=== PATIENT | male | born 1995 | race Caucasian/White ===

== ENCOUNTER 2017-02-24 03:34 | Emergency (ER) | payer OTHER ==
[2017-02-24] MEDS ORDERED: FAMOTIDINE 20 MG/2 ML SDV IVP ONE (03:39)
[2017-02-24] MEDS ORDERED: DEXAMETHASONE 10 MG/ML VIAL IVP ONE (03:39)
[2017-02-24] MEDS ORDERED: NS 1,000 ML IV ONE (03:40)
--- NOTE | 2017-02-24 03:43 | EDPHY ---
H & P HPI/ROS: HPI CHIEF COMPLAINT: Uvula swelling. HISTORY OF PRESENT ILLNESS: Patient is a otherwise healthy 21-year-old male, presents emergency room with uvula swelling. He had called 911 as he states that he was up trying to have a glass of water noticed that his uvula was sudden onset swelling. Approximately 1 hour ago. He felt like he could swallow was choking so he called 911. EMS found him to be anxious however on neuro exam they noticed that his uvula was swollen brought into the emergency room. They did give him 50 of Benadryl in route. Upon arrival to the emergency room is resting comfortably clear lungs no rash. No stridor. Not drooling. He does have swollen boggy uvula. Consistent with uvulitis. He has not been sick recently. No fever. No neck pain. States the only thing he can think of he ate and not as tonight from a place he does not normally eat out. He has no other signs of allergic reaction or significant allergic reaction history. He does admit to approximately 7 shots of liquor tonight. He does smell of alcohol upon arrival to the emergency room. Past Medical History: No significant medical history Past Surgical History: No significant surgical history Social History: Denies daily use drugs alcohol tobacco products. [employer] student. Family History: Noncontributory ROS REVIEW OF SYSTEMS: A comprehensive 10 point review of systems is otherwise negative aside from elements mentioned in the history of present illness. Exam Constitutional appears well nontoxic, triage nursing summary reviewed, vital signs reviewed, awake/alert. Eyes normal conjunctivae and sclera, EOMI, PERRLA. HENT posterior pharynx uvula is boggy symmetrically swollen. Posterior pharynx otherwise unremarkable. No stridor. Not drooling. Able swallow appropriately. No signs of Enrico's. No stridor. No neck swelling. Soft palate normal. Tongue normal. normal inspection, atraumatic, moist mucus membranes, no epistaxis, neck supple/ no meningismus, no raccoon eyes. Respiratory clear to auscultation bilaterally, normal breath sounds, no respiratory distress, no wheezing. Cardiovascular rate normal, regular rhythm, no murmur, no edema, distal pulses normal. Gastrointestinal soft, non-tender, no rebound, no guarding, normal bowel sounds, no distension, no pulsatile mass. Genitourinary no CVA tenderness. Musculoskeletal no midline vertebral tenderness, full range of motion, no calf swelling, no tenderness of extremities, no meningismus, good pulses, neurovascularly intact. Skin pink, warm, & dry, no rash, skin atraumatic. Neurologic awake, alert and oriented x 3, AAOx3, moves all 4 extremities equally, motor intact, sensory intact, CN II-XII intact, normal cerebellar, normal vision, normal speech. Psychiatric normal mood/affect. Heme/Lymph/Immune no lymphadenopathy. Differential Diagnosis: Includes but is not limited to in a particular order allergic reaction, uvulitis, infection, strep Medical Decision Making: Plan for this patient treat as an acute allergic reaction with sudden onset uvulitis. Will get 10 mg IV Decadron, here to receive 50 mg IV Benadryl, will give IV Pepcid IV fluids and closely observed. Re-evaluation: 0600: I did re-evaluate this patient at this time. He is resting comfortably. He has not had any progression of allergic reaction or further swelling of his uvula. He has been resting comfortably. He has no trouble swallowing and breathing. He has been monitored here for multiple hours. He would like to go home. He has no neck pain or meningeal signs. I did re-evaluate his uvula and it is mildly swollen but not progressing. No airway compromise will place him on amoxicillin and Decadron. ENT follow-up. Additionally understands return emergency room if he has any worsening symptoms questions or concerns. This includes worsening breathing, swallowing. Fever Source: Patient, EMS Constitutional: Initial Vital Signs Temperature (C) 36.9 C 02/24/17 03:40 Heart Rate 105 H 02/24/17 03:40 Respiratory Rate 18 02/24/17 03:40 Blood Pressure 145/87 H 02/24/17 03:40 O2 Sat (%) 94 02/24/17 03:40 O2 Delivery Mode Room Air Allergies/Adverse Reactions: No Known Allergies Allergy (Unverified 02/24/17 04:03) Home Medications: Medication Instructions Recorded Amoxicillin Trihydrate [Amoxil] 500 mg PO TID 7 Days cap 02/24/17 Dexamethasone [Decadron 4 MG (*)] 4 mg PO DAILY #4 tab 02/24/17 Medical Decision Making - Data Points Laboratory Results: Laboratory Results 02/24/17 03:00 02/24/17 03:00 02/24/17 02/24/17 02/24/17 Unknown 03:00 03:00 WBC RBC Hgb Hct MCV MCH MCHC RDW Plt Count MPV Neut % (Auto) Lymph % (Auto) [place] % (Auto) Eos % (Auto) Baso % (Auto) Nucleat RBC Rel Count Absolute Neuts (auto) Absolute Lymphs (auto) Absolute Monos (auto) Absolute Eos (auto) Absolute Basos (auto) Absolute Nucleated RBC Immature Gran % Immature Gran # Sodium 146 mEq/L H mEq/L (134-144) Potassium 4.1 mEq/L mEq/L (3.5-5.2) Chloride 106 mEq/L mEq/L (97-110) Carbon Dioxide 22 mEq/l mEq/l (22-31) Anion Gap 18 mEq/L H mEq/L (8-16) BUN 13 mg/dL mg/dL (7-23) Creatinine 1.1 mg/dL mg/dL (0.7-1.3) Estimated GFR > 60 Glucose 102 mg/dL H mg/dL (70-100) Calcium 9.5 mg/dL mg/dL (8.5-10.4) Ethyl Alcohol 137 mg/dL H mg/dL (0-10) Group A Strep Screen NEGATIVE (NEGATIVE) Group A Strep DNA Pending 02/24/17 03:00 WBC 7.32 10^3/uL 10^3/uL (3.80-9.50) RBC 5.44 10^6/uL 10^6/uL (4.40-6.38) Hgb 16.3 g/dL g/dL (13.7-17.5) Hct 44.9 % % (40.0-51.0) MCV 82.5 fL fL (81.5-99.8) MCH 30.0 pg pg (27.9-34.1) MCHC 36.3 g/dL g/dL (32.4-36.7) RDW 12.0 % % (11.5-15.2) Plt Count 285 10^3/uL 10^3/uL (150-400) MPV 9.9 fL fL (8.7-11.7) Neut % (Auto) 67.4 % % (39.3-74.2) Lymph % (Auto) 20.5 % % (15.0-45.0) [place] % (Auto) 10.8 % % (4.5-13.0) Eos % (Auto) 0.7 % % (0.6-7.6) Baso % (Auto) 0.3 % % (0.3-1.7) Nucleat RBC Rel Count 0.0 % % (0.0-0.2) Absolute Neuts (auto) 4.94 10^3/uL 10^3/uL (1.70-6.50) Absolute Lymphs (auto) 1.50 10^3/uL 10^3/uL (1.00-3.00) Absolute Monos (auto) 0.79 10^3/uL 10^3/uL (0.30-0.80) Absolute Eos (auto) 0.05 10^3/uL 10^3/uL (0.03-0.40) Absolute Basos (auto) 0.02 10^3/uL 10^3/uL (0.02-0.10) Absolute Nucleated RBC 0.00 10^3/uL 10^3/uL (0-0.01) Immature Gran % 0.3 % % (0.0-1.1) Immature Gran # 0.02 10^3/uL 10^3/uL (0.00-0.10) Sodium Potassium Chloride Carbon Dioxide Anion Gap BUN Creatinine Estimated GFR Glucose Calcium Ethyl Alcohol Group A Strep Screen Group A Strep DNA Medications Given: Discontinued Medications Dexamethasone (Decadron Injection) 10 mg IVP EDNOW ONE Stop: 02/24/17 03:40 Last Admin: 02/24/17 03:56 Dose: 10 mg Famotidine (Pepcid) 20 mg IVP EDNOW ONE Stop: 02/24/17 03:40 Last Admin: 02/24/17 03:56 Dose: 20 mg Sodium Chloride (Ns) 1,000 mls @ 0 mls/hr IV ONCE ONE PRN Reason: Wide Open Stop: 02/24/17 03:41 Last Admin: 02/24/17 03:55 Dose: 1,000 mls Departure - Departure Disposition: Home, Routine, Self-Care Clinical Impression: Uvulitis Alcohol intoxication Qualifiers: Complication of substance-induced condition: uncomplicated Qualified Code(s): F10.920 - Alcohol use, unspecified with intoxication, uncomplicated Condition: Good Instructions: Uvulitis (ED), Alcohol Intoxication (ED) Additional Instructions: 1. Drink lots of fluids cold fluids stay well-hydrated. 2. Antibiotics as prescribed. 3. Decadron as prescribed. 4. Return to the emergency room if you develops worsening throat pain, trouble swallowing trouble breathing or any questions or concerns. Referrals: Patient,NotPresent [Unknown] - As per Instructions Ellyn Palencia MD [Medical Doctor] - As per Instructions Prescriptions: Amoxicillin Trihydrate [Amoxil] 500 mg PO TID 7 Days cap Dexamethasone [Decadron 4 MG (*)] 4 mg PO DAILY #4 tab
[2017-02-24 03:54] LABS: % IMMATURE GRANULYOCYTES 0.3 % (0.0-1.1); ABSOLUTE IMMATURE GRANULOCYTES 0.02 10^3/uL (0.00-0.10); ADD DIFF? NO; ADD MORPH? NO; ADD SCAN? NO; ATYPICAL LYMPHOCYTE FLAG 0 (0-99); FRAGMENT RBC FLAG 0 (0-99); HEMATOCRIT 44.9 % (40.0-51.0); HEMOGLOBIN 16.3 g/dL (13.7-17.5); LEFT SHIFT FLG 0 (0-99); LIPEMIA HEMOLYSIS FLAG 90 (0-99); MEAN CELL HEMOGLOBIN CONCENTR. 36.3 g/dL (32.4-36.7); MEAN CELL VOLUME 82.5 fL (81.5-99.8); MEAN PLATELET VOLUME 9.9 fL (8.7-11.7); PLATELET CLUMPS FLAG 0 (0-99); PLATELET COUNT 285 10^3/uL (150-400); RED BLOOD CELL COUNT 5.44 10^6/uL (4.40-6.38)
[2017-02-24 04:06] VITALS: O2SAT 94
[2017-02-24 04:10] LABS: ANION GAP 18 mEq/L (8-16); CALCIUM 9.5 mg/dL (8.5-10.4); CARBON DIOXIDE 22 mEq/l (22-31); CHLORIDE 106 mEq/L (97-110); CREATININE 1.1 mg/dL (0.7-1.3); ETHANOL SERUM 137 mg/dL (0-10); GLOMERULAR FILTRATION RATE > 60; GLUCOSE 102 mg/dL (70-100); POTASSIUM 4.1 mEq/L (3.5-5.2); SODIUM 146 mEq/L (134-144)
[2017-02-24 06:21] VITALS: BP 120/66; PULSE 78; RESP 16; TEMP 99
== END 2017-02-24 06:22 | disposition home or self-care (01) ==
DX: K12.2 Cellulitis and abscess of mouth (principal); F10.920 Alcohol use, unspecified with intoxication, uncomplicated
CPT/HCPCS: 96374; G0480; J1100